=== PATIENT | male | born 1960 | race Caucasian/White ===

== ENCOUNTER → 2017-01-29 | Outpatient (REF) | payer OTHER ==
[~2017-01-29] MED LIST: AMLO5TAB2 PO; ASPI32ECTA PO; ATOR40TA PO; BACT800T5 PO; CLOP75TA2 PO; FLUT1SPR2; FOLI1TAB2 PO; GABA600T PO; LABE10TAB PO; LISI20TA3 PO; VITA100T92 PO
== END ==
LOC: M LAB REF 16:24
PROVIDERS: ATTEND Neurological Surgery
DX: Z01.818 Encounter for other preprocedural examination (principal)

== ENCOUNTER → 2017-01-29 | Outpatient (CLI) | payer BC, OTHER ==
[2017-01-29 14:41] LABS: BASO # 0.1 K/mm3 (0.0-0.2); BASO % 0.5 % (0.0-1.0); EOS # 0.3 K/mm3 (0.0-0.50); EOS % 2.8 % (0.0-3.0); INR 0.92; LARGE UNSTAINED CELL # 0.2 K/mm3 (0.0-0.4); LARGE UNSTAINED CELL % 1.4 % (0.0-4.0); LYMPH # 2.4 K/mm3 (1.5-4.5); LYMPH % 21.5 % (24.0-44.0); MEAN CORPUSCULAR HEMOGLOBIN 36.5 pg (27.0-33.0); MEAN CORPUSCULAR HGB CONC 34.1 g/dl (32.0-36.5); MONO # 0.6 K/mm3 (0.0-0.8); MONO % 5.6 % (0.0-5.0); NEUTROPHILS # 7.6 K/mm3 (1.8-7.7); NEUTROPHILS % 68.2 % (36.0-66.0); PLATELET COUNT, AUTOMATED 301 k/mm3 (150-450); RED CELL DISTRIBUTION WIDTH 11.7 % (11.5-14.5); WHITE BLOOD COUNT 11.1 K/mm3 (4.0-10.0)
--- NOTE | 2017-01-29 14:43 | ECGEPIP ---
Stationary ECG Study [facility] Test Date: 2017-01-29 Pat Name: DANYELL TURPIN Department: Room: - Gender: [employer]: CIPRIANO : 1960 Requested By: ALFIE Michele Order Number: [id number] Reading MD: Meredith Jackson Measurements Intervals [place] Rate: 78 P: 39 NC: 202 QRS: -1 QRSD: 109 T: 30 QT: 359 QTc: 409 Interpretive Statements SINUS RHYTHM FIRST DEGREE BLOCK NO PRIOR Electronically Signed On 01-29-2017 14:43:02 EDT by Meredith Jackson
--- NOTE | 2017-01-29 14:53 | REP ---
Clinical: Preoperative assessment . Comparison: 12/20/2013 . Technique: PA and lateral. Findings: The mediastinum and cardiac silhouette are normal. The lung hinkle demonstrate chronic stable changes without acute consolidation, effusion, or pneumothorax. The skeletal structures are intact and normal. Impression: 1. No acute cardiopulmonary process. Signed by Cuco Hansen MD 01/29/2017 02:45 P
[2017-01-29 14:54] LABS: ALBUMIN 3.8 GM/DL (3.2-5.2); ALBUMIN/GLOBULIN RATIO 1.23 (1.00-1.93); BILIRUBIN,TOTAL 0.3 MG/DL (0.2-1.0); CREATININE FOR GFR 2.28 MG/DL (0.70-1.30); GLOMERULAR FILTRATION RATE 31.7 (>56); POTASSIUM SERUM 4.8 MEQ/L (3.5-5.1); TOTAL PROTEIN 6.9 GM/DL (6.4-8.2)
[2017-01-29 15:26] LABS: COLLAGEN ADP 73 SECONDS (56-103)
== END ==
LOC: M LAB 13:40
PROVIDERS: ATTEND Neurological Surgery
DX: Z01.818 Encounter for other preprocedural examination (principal)

== ENCOUNTER → 2017-01-30 | Outpatient (CLI) | payer OTHER, BC ==
--- NOTE | 2017-01-30 11:29 | PFTRPT ---
Tech: Penny SPARROW RRT Age: 56 Sex: Male Race: Height: 72.00 Inches Weight: 195.00 Lbs BSA: 2.11 Diagnosis: J44.9 PULMONARY FUNCTION REPORT ORDERING PROVIDER: Eloy Singh M.D. DATE OF SERVICE: 01/30/17 SPIROMETRY:The study was of excellent technical quality. Some difficulty with effort. The forced vital capacity is normal. The FEV1 is in proportion. The obstructive index is, therefore, normal. FLOW VOLUME LOOP: The expiratory limb of the flow volume loop is normal. LUNG VOLUMES: The total lung capacity is normal. The residual volume is borderline for air trapping. DIFFUSION CAPACITY: The diffusion capacity is borderline normal, but completely corrects for alveolar volume. HEMOGLOBIN: No hemoglobin is available for correction. AIRWAY MECHANICS: Airways resistance and conductance are only minimally abnormal. IMPRESSION: Cannot rule out a mild degree of air trapping; otherwise, normal study. MTDD
== END ==
LOC: M CARPUL 10:51
PROVIDERS: ATTEND Neurological Surgery
DX: J44.9 Chronic obstructive pulmonary disease, unspecified (principal)

== ENCOUNTER → 2017-02-06 | Day surgery (SDC) | payer BC, OTHER ==
[~2017-02-06] VITALS: Ht 182.9 cm; Wt 88.5 kg
[~2017-02-06] MED LIST changes: +LIDOCAINE 1% SDV INJ 30 ML VIAL As Ordered ONE; +LIDOCAINE 2% INJ 100 MG/5 ML SDV (FOR ANES.) As Ordered ONE; +LR 1,000 ML IV ONE; +LR 1,000 ML IV SCH; +MIDAZOLAM INJ 2 MG/2 ML VIAL (J2250) As Ordered ONE; +NORCO, ANEXSIA 5/325MG TABLET (HYDROcodone/ACETAMINOPHEN) As Ordered ONE; +NORCO, ANEXSIA 5/325MG TABLET (HYDROcodone/ACETAMINOPHEN) PO PRN; +ONDANSETRON 4MG/2ML VIAL (J2405) As Ordered ONE; +ONDANSETRON 4MG/2ML VIAL (J2405) IV PRN; +PHENYLephrine HCL 500 MCG/5 ML (100MCG/ML) SYRINGE (J2370) As Ordered ONE; +PROPOFOL 200 MG/20 ML VIAL As Ordered ONE; +ePHEDrine SULFATE 25 MG/5 ML(5MG/ML) SYRINGE As Ordered ONE; +fentaNYL 100 MCG/2 ML INJECTION (J3010) As Ordered ONE; +fentaNYL 100 MCG/2 ML INJECTION (J3010) IV PRN; +methylPREDNISolone SUSP 40 MG/ML (DEPO-medrol) VIAL (J1030) As Ordered ONE
[2017-02-06 15:45] VITALS: BP 115/56
--- NOTE | 2017-02-07 08:39 | RO ---
DATE OF PROCEDURE: 02/06/2017 PREPROCEDURE DIAGNOSIS: Left carpal tunnel syndrome. POSTPROCEDURE DIAGNOSIS: Left carpal tunnel syndrome. PROCEDURE: Release of left carpal tunnel and external neurolysis of median nerve of left carpal tunnel. SURGEON: Dr. Eloy Singh. WARP HAND: None. ANESTHESIA: General. ESTIMATED BLOOD LOSS: Findings: Please see my office notes for detailed preoperative evaluation and discussions. Patient has clinical and electrodiagnostic evidence of left carpal tunnel syndrome along with the above findings. Patient was seen with his sister in the preoperative area. Patient and his sister are aware that not all of his symptoms can be readily explained on carpal tunnel syndrome, thus not all may be addressed. He understands all options, scope, expected outcome, sequel and all complications of carpal tunnel syndrome surgery and understands the risks of surgery include persistence or worsening of symptoms and/or deficits, failure of surgery, need for multiple surgeries, loss of vital bodily functions, RSD, infection, bleeding and/or any catastrophic sequel. Patient again states that he cannot live with these symptoms and is willing to take any or all risks for any possible benefit. At his request and after all matters pertaining to surgery and followup care had been discussed with him, he wished to proceed with surgery. Once in the operating room, general anesthesia was given by the anesthesia service as patient and anesthesiologist mutually decided not to have surgery done under nerve block and MAC. After adequate prep and drape, the left upper extremity was exsanguinated using Esmarch dressing. A skin incision was given along the palmar creases distal to the wrist crease. Alveolar layer was reached and incised. Cut edges of the blood vessels were coagulated with bipolar cautery. Tendons of palmaris longus were opened. Thenar and hypothenar muscles were stripped off the flexor retinaculum which was then incised in its entirety. There was nodular hypertrophy of the flexor retinaculum at the junction of the wrist as well as distally and at these sites, there was increased perineural scarring and compression of the median nerve. Superficial nerve regions were lysed and complete decompression of the median nerve appeared to have taken place. At this time, the wound was closed in two layers. Patient tolerated the procedure well and was transferred to the recovery room in stable condition. Operative findings were discussed with the patient's sister in the waiting room.
== END | disposition home or self-care (01) ==
LOC: M SDC 09:25
PROVIDERS: ATTEND Neurological Surgery
DX: G56.02 Carpal tunnel syndrome, left upper limb (principal); E78.00 Pure hypercholesterolemia, unspecified; I11.9 Hypertensive heart disease without heart failure; I25.119 Atherosclerotic heart disease of native coronary artery with unspecified angina pectoris; J44.9 Chronic obstructive pulmonary disease, unspecified; H92.09 Otalgia, unspecified ear; H90.5 Unspecified sensorineural hearing loss; I25.2 Old myocardial infarction; G47.00 Insomnia, unspecified; I49.9 Cardiac arrhythmia, unspecified; R06.02 Shortness of breath; R06.2 Wheezing; K64.9 Unspecified hemorrhoids; K21.9 Gastro-esophageal reflux disease without esophagitis; G56.20 Lesion of ulnar nerve, unspecified upper limb; G60.3 Idiopathic progressive neuropathy; M47.16 Other spondylosis with myelopathy, lumbar region; M47.12 Other spondylosis with myelopathy, cervical region; R25.1 Tremor, unspecified; H81.93 Unspecified disorder of vestibular function, bilateral; M46.1 Sacroiliitis, not elsewhere classified; F17.210 Nicotine dependence, cigarettes, uncomplicated; R29.898 Other symptoms and signs involving the musculoskeletal system; G47.30 Sleep apnea, unspecified; Z79.899 Other long term (current) drug therapy; Z79.82 Long term (current) use of aspirin; Z86.73 Personal history of transient ischemic attack (TIA), and cerebral infarction without residual deficits; Z95.5 Presence of coronary angioplasty implant and graft
CPT/HCPCS: 36415; 64721; 81001; 85576; J0690; J1030; J2250; J2370; J2405; J3010

== ENCOUNTER → 2017-03-11 | Outpatient (REF) | payer OTHER ==
[~2017-03-11] MED LIST changes: -LIDOCAINE 1% SDV INJ 30 ML VIAL As Ordered ONE; -LIDOCAINE 2% INJ 100 MG/5 ML SDV (FOR ANES.) As Ordered ONE; -LR 1,000 ML IV ONE; -LR 1,000 ML IV SCH; -MIDAZOLAM INJ 2 MG/2 ML VIAL (J2250) As Ordered ONE; -NORCO, ANEXSIA 5/325MG TABLET (HYDROcodone/ACETAMINOPHEN) As Ordered ONE; -NORCO, ANEXSIA 5/325MG TABLET (HYDROcodone/ACETAMINOPHEN) PO PRN; -ONDANSETRON 4MG/2ML VIAL (J2405) As Ordered ONE; -ONDANSETRON 4MG/2ML VIAL (J2405) IV PRN; -PHENYLephrine HCL 500 MCG/5 ML (100MCG/ML) SYRINGE (J2370) As Ordered ONE; -PROPOFOL 200 MG/20 ML VIAL As Ordered ONE; -ePHEDrine SULFATE 25 MG/5 ML(5MG/ML) SYRINGE As Ordered ONE; -fentaNYL 100 MCG/2 ML INJECTION (J3010) As Ordered ONE; -fentaNYL 100 MCG/2 ML INJECTION (J3010) IV PRN; -methylPREDNISolone SUSP 40 MG/ML (DEPO-medrol) VIAL (J1030) As Ordered ONE
[2017-03-11 19:59] LABS: FOLATE > 24.0 NG/ML; VITAMIN B12 LEVEL 295 PG/ML
[2017-03-14 00:07] LABS: Lyme Disease IgG/IgM Antibodie <0.91 ISR (0.00-0.90); Lyme Disease IgM Ab Quantitati <0.80 index (0.00-0.79)
== END ==
LOC: M LAB REF 17:29
PROVIDERS: ATTEND Physician Assistant Medical
DX: R53.83 Other fatigue (principal)

== ENCOUNTER → 2018-05-11 | Outpatient (CLI) | payer OTHER | LOC: M WUC 14:01 | DX: M51.36 Other intervertebral disc degeneration, lumbar region (principal); S30.0XXA Contusion of lower back and pelvis, initial encounter; Y92.89 Other specified places as the place of occurrence of the external cause; Y93.89 Activity, other specified; Y99.8 Other external cause status; X58.XXXA Exposure to other specified factors, initial encounter | CPT/HCPCS: 72110 ==

== ENCOUNTER 2021-10-31 16:31 | Inpatient (IN) | payer BC ==
[~2021-10-31] VITALS: Ht 182.9 cm; Wt 93.8 kg
[~2021-10-31 16:31] MED LIST changes: +AMLO1TAB24 PO; -AMLO5TAB2 PO; +ASPI-255 PO; -ASPI32ECTA PO; -ATOR40TA PO; +ATOR40TA75 PO; +FOLI1TAB11 PO; -FOLI1TAB2 PO; -GABA600T PO; +GABA600T4 PO; +LABE100T4 PO; -LABE10TAB PO; -LISI20TA3 PO; +LISI20TA37 PO; +VITA100T89 PO; -VITA100T92 PO
[2021-10-31] MEDS ORDERED: FUROSEMIDE 40MG/4ML VIAL (J1940) IV ONE (17:25)
[2021-10-31 17:53] LABS: BASO # 0.1 10^3/uL (0.0-0.2); BASO % 0.9 % (0.0-1.0); EOS # 0.1 10^3/uL (0.0-0.5); EOS % 0.6 % (0.0-3.0); HEMATOCRIT 43.6 % (42.0-52.0); HEMOGLOBIN 14.2 g/dl (13.5-17.5); LYMPH # 1.3 10^3/uL (1.5-5.0); LYMPH % 15.1 % (24.0-44.0); MEAN CORPUSCULAR HEMOGLOBIN 36.8 pg (27.0-33.0); MEAN CORPUSCULAR HGB CONC 32.6 g/dl (32.0-36.5); MONO # 0.7 10^3/uL (0.0-0.8); MONO % 8.1 % (2.0-8.0); NEUTROPHILS # 6.5 10^3/uL (1.5-8.5); PLATELET COUNT, AUTOMATED 187 10^3/uL (150-450); RED BLOOD COUNT 3.86 10^6/uL (4.30-6.10); WHITE BLOOD COUNT 8.7 10^3/uL (4.0-10.0)
[2021-10-31 18:14] LABS: INR 1.13; PROTHROMBIN TIME 14.9 SECONDS (12.7-14.5)
[2021-10-31 18:15] LABS: ALBUMIN 3.2 GM/DL (3.2-5.2); ALT/SGPT 28 U/L (12-78); BILIRUBIN,DIRECT 1.1 MG/DL (0.0-0.2); BILIRUBIN,TOTAL 2.2 MG/DL (0.2-1.0); BLOOD UREA NITROGEN 12 MG/DL (7-18); CALCIUM LEVEL 9.2 MG/DL (8.8-10.2); CARBON DIOXIDE LEVEL 30 MEQ/L (21-32); CHLORIDE LEVEL 97 MEQ/L (98-107); CREATININE FOR GFR 1.22 MG/DL (0.70-1.30); ETHYL ALCOHOL (ETHANOL) 0.008 % (0.000-0.010); GLOMERULAR FILTRATION RATE > 60.0 (>49); GLUCOSE, FASTING 95 MG/DL (70-100); MAGNESIUM LEVEL 1.5 MG/DL (1.8-2.4); NT-PRO BNP 13859 PG/ML (<125); POTASSIUM SERUM 4.7 MEQ/L (3.5-5.1); SODIUM LEVEL 136 MEQ/L (136-145); TOTAL PROTEIN 6.5 GM/DL (6.4-8.2)
[2021-10-31] MEDS ORDERED: OXAZEPAM 15 MG CAP PO ONE (18:25)
[2021-10-31] MEDS ORDERED: MAG SULF 1GM/100ML (MAG RUN) 1 GM in IV 1 EA IV ONE (18:30)
[2021-10-31] MEDS ORDERED: niCARdipine IV 40 MG in IV 1 EA IV SCH (18:35)
[2021-10-31] MEDS ORDERED: methylPREDNISolone 125MG 2ML VIAL IV STA (19:01)
[2021-10-31] MEDS ORDERED: HOME MED LIST COMPLETE! XX SCH (19:05)
[2021-10-31] MEDS ORDERED: ACETAMINOPHEN TAB 650MG DOSE (2X325MG) PO PRN (19:05)
[2021-10-31] MEDS ORDERED: guaiFENesin DM LIQ 10ML UD PO PRN (19:05)
[2021-10-31] MEDS ORDERED: LORazepam 2 MG TAB PO PRN (19:05)
[2021-10-31] MEDS ORDERED: MOM 30ML SUSPENSION UDC PO PRN (19:05)
[2021-10-31] MEDS ORDERED: MAALOX 30 ML SUSP *UDC PO PRN (19:05)
[2021-10-31] MEDS ORDERED: LEVALBUTEROL 1.25 MG/0.5 ML CONCENTRATE NEB NEB PRN (19:10)
[2021-10-31] MEDS: IPRATROPIUM 0.5MG/ALBUTEROL 2.5MG INH SOL UD 3ML (DUONEB) NEB SCH (20:04)
[2021-10-31] MEDS ORDERED: hydrALAZINE 20MG/ML 1ML VIAL (J0360 PER 20MG) IV PRN (20:10)
[2021-10-31 20:11] LABS: FOLATE 5.8 NG/ML (>5.4)
[2021-10-31] MEDS ORDERED: SPIRONOLACTONE 25 MG TAB PO ONE (21:00)
[2021-10-31] MEDS ORDERED: cefTRIAXone SOD 1 GM in D5W MINI-BAG PLUS 50 ML IV ONE (21:05)
[2021-10-31 21:30] VITALS: BP 151/79
[2021-10-31] MEDS: THIAMINE 100 MG TAB PO SCH (21:56)
[2021-10-31] MEDS: DOCUSATE SODIUM 100MG CAPSULE PO SCH (21:56)
[2021-10-31 23:50] VITALS: BP 160/88
[2021-11-01] VITALS (12 sets, daily range): BP systolic 104–145; BP diastolic 53–71; O2SAT 89–95
[2021-11-01] MEDS: OXAZEPAM 10 MG CAP PO SCH ×4 (00:25→17:56)
[2021-11-01] MEDS ORDERED: ACETAMINOPHEN TAB 650MG DOSE (2X325MG) PO PRN (01:40)
[2021-11-01] MEDS ORDERED: FUROSEMIDE 40MG/4ML VIAL (J1940) IV SCH ×2 (02:00→08:00)
[2021-11-01] MEDS: IPRATROPIUM 0.5MG/ALBUTEROL 2.5MG INH SOL UD 3ML (DUONEB) NEB SCH ×4 (02:00→19:54)
[2021-11-01] MEDS: methylPREDNISolone 125MG 2ML VIAL IV SCH ×3 (04:04→20:15)
[2021-11-01 05:50] LABS: APPEARANCE, URINE CLEAR (CLEAR); BACTERIA, URINE AUTO NEGATIVE (NEGATIVE); BILIRUBIN, URINE AUTO NEGATIVE (NEGATIVE); BLOOD, URINE BLOOD NEGATIVE (NEGATIVE); GLUCOSE, URINE (UA) AUTO NEGATIVE (NEGATIVE); KETONE, URINE AUTO NEGATIVE (NEGATIVE); LEUKOCYTE ESTERASE, URINE AUTO NEGATIVE (NEGATIVE); NITRITE, URINE AUTO NEGATIVE (NEGATIVE); PROTEIN, URINE AUTO 1+ mg/dL (NEGATIVE); RBC, URINE AUTO 1 /HPF (0-3); SPECIFIC GRAVITY URINE AUTO 1.004 (1.002-1.035); SQUAMOUS EPITHELIAL CELL UR AU 0 /HPF (0-6); UROBILINOGEN, URINE AUTO 0.2 mg/dL (0.0-2.0); WBC, URINE AUTO 0 /HPF (0-3)
[2021-11-01] MEDS ORDERED: ISOSORBIDE DIN. (ISORDIL) 20 MG TAB PO SCH ×2 (06:00→12:00)
[2021-11-01 06:04] LABS: HEMATOCRIT 43.5 % (42.0-52.0); HEMOGLOBIN 14.4 g/dl (13.5-17.5); MEAN CORPUSCULAR HEMOGLOBIN 36.8 pg (27.0-33.0); MEAN CORPUSCULAR HGB CONC 33.1 g/dl (32.0-36.5); MEAN CORPUSCULAR VOLUME 111.3 fl (80.0-96.0); PLATELET COUNT, AUTOMATED 190 10^3/uL (150-450); RED BLOOD COUNT 3.91 10^6/uL (4.30-6.10); WHITE BLOOD COUNT 4.7 10^3/uL (4.0-10.0)
[2021-11-01 06:28] LABS: ALBUMIN 2.8 GM/DL (3.2-5.2); ALT/SGPT 25 U/L (12-78); BILIRUBIN,TOTAL 2.6 MG/DL (0.2-1.0); BLOOD UREA NITROGEN 13 MG/DL (7-18); CARBON DIOXIDE LEVEL 32 MEQ/L (21-32); CHLORIDE LEVEL 95 MEQ/L (98-107); CREATININE FOR GFR 1.09 MG/DL (0.70-1.30); GLOMERULAR FILTRATION RATE > 60.0 (>49); GLUCOSE, FASTING 147 MG/DL (70-100); MAGNESIUM LEVEL 1.4 MG/DL (1.8-2.4); POTASSIUM SERUM 4.1 MEQ/L (3.5-5.1); SODIUM LEVEL 136 MEQ/L (136-145); TOTAL PROTEIN 6.3 GM/DL (6.4-8.2)
[2021-11-01] MEDS ORDERED: metOLazone 5 MG TAB PO ONE (08:00)
[2021-11-01] MEDS ORDERED: MAG SULF 1GM/100ML (MAG RUN) 1 GM in IV 1 EA IV ONE (08:00)
[2021-11-01 08:15] LABS: COLOR, URINE YELLOW (YELLOW)
[2021-11-01] MEDS: **hydrALAZINE HCL** 25 MG TAB PO SCH ×3 (08:36→17:56)
[2021-11-01] MEDS: DOCUSATE SODIUM 100MG CAPSULE PO SCH ×2 (09:00→20:16)
[2021-11-01] MEDS: MULTIVITAMINS/MINERALS THERAP 1 TAB PO SCH (09:18)
[2021-11-01] MEDS: PANTOPRAZOLE 40MG TAB (PROTONIX) PO SCH (09:18)
[2021-11-01] MEDS: MAGNESIUM OXIDE 400MG TAB (MAG-OX) PO SCH ×2 (09:18→20:17)
[2021-11-01] MEDS: THIAMINE 100 MG TAB PO SCH ×2 (09:18→20:16)
[2021-11-01] MEDS: FUROSEMIDE 40MG/4ML VIAL (J1940) IV SCH ×3 (09:19→20:16)
[2021-11-01] MEDS: FOLIC ACID 1 MG TAB PO SCH (09:19)
[2021-11-01] MEDS: ENOXAPARIN 40MG/0.4ML SYRINGE (J1650 PER 10MG) SC SCH (09:19)
[2021-11-01] MEDS: SPIRONOLACTONE 25 MG TAB PO SCH (09:25)
[2021-11-01] MEDS ORDERED: LOPERAMIDE 2 MG CAPLET PO PRN (15:10)
[2021-11-01 16:11] LABS: CREATININE FOR GFR 1.52 MG/DL (0.70-1.30); GLOMERULAR FILTRATION RATE 49.7 (>49); MAGNESIUM LEVEL 1.5 MG/DL (1.8-2.4); POTASSIUM SERUM 3.6 MEQ/L (3.5-5.1)
[2021-11-01 16:16] LABS: CK-MB VALUE MASS 3.3 NG/ML (<3.6); MB/CK RELATIVE INDEX 3.98 (< OR =4)
[2021-11-01] MEDS: NYSTATIN 100,000 UNITS/GM TOPICAL PWD 15 GM TOP SCH (20:15)
[2021-11-02] MEDS: **hydrALAZINE HCL** 25 MG TAB PO SCH ×2 (00:46→06:04)
[2021-11-02] MEDS: OXAZEPAM 10 MG CAP PO SCH ×4 (00:46→18:26)
[2021-11-02 00:56] VITALS: BP 133/69
[2021-11-02] MEDS: IPRATROPIUM 0.5MG/ALBUTEROL 2.5MG INH SOL UD 3ML (DUONEB) NEB SCH ×4 (02:00→21:37)
[2021-11-02] MEDS: FUROSEMIDE 40MG/4ML VIAL (J1940) IV SCH (03:19)
[2021-11-02] MEDS: methylPREDNISolone 125MG 2ML VIAL IV SCH ×2 (03:19→11:35)
[2021-11-02 06:00] VITALS: BP 128/66
[2021-11-02 06:48] LABS: HEMATOCRIT 38.5 % (42.0-52.0); MEAN CORPUSCULAR HGB CONC 33.8 g/dl (32.0-36.5); MEAN CORPUSCULAR VOLUME 109.7 fl (80.0-96.0); PLATELET COUNT, AUTOMATED 185 10^3/uL (150-450); RED BLOOD COUNT 3.51 10^6/uL (4.30-6.10); WHITE BLOOD COUNT 13.1 10^3/uL (4.0-10.0)
[2021-11-02 07:17] LABS: ALBUMIN 2.9 GM/DL (3.2-5.2); CALCIUM LEVEL 9.3 MG/DL (8.8-10.2); CREATININE FOR GFR 1.45 MG/DL (0.70-1.30); GLOMERULAR FILTRATION RATE 52.5 (>49); MAGNESIUM LEVEL 1.6 MG/DL (1.8-2.4); POTASSIUM SERUM 3.6 MEQ/L (3.5-5.1); TOTAL PROTEIN 6.1 GM/DL (6.4-8.2)
[2021-11-02] MEDS ORDERED: MAG SULF 1GM/100ML (MAG RUN) 1 GM in IV 1 EA IV ONE (08:20)
[2021-11-02] MEDS: FOLIC ACID 1 MG TAB PO SCH (09:12)
[2021-11-02] MEDS: DOCUSATE SODIUM 100MG CAPSULE PO SCH ×2 (09:12→21:19)
[2021-11-02] MEDS: ENOXAPARIN 40MG/0.4ML SYRINGE (J1650 PER 10MG) SC SCH (09:12)
[2021-11-02] MEDS: THIAMINE 100 MG TAB PO SCH ×2 (09:12→21:19)
[2021-11-02] MEDS: MULTIVITAMINS/MINERALS THERAP 1 TAB PO SCH (09:12)
[2021-11-02] MEDS: SPIRONOLACTONE 25 MG TAB PO SCH (09:13)
[2021-11-02] MEDS: MAGNESIUM OXIDE 400MG TAB (MAG-OX) PO SCH ×2 (09:13→21:20)
[2021-11-02] MEDS: PANTOPRAZOLE 40MG TAB (PROTONIX) PO SCH (09:13)
[2021-11-02] MEDS: NYSTATIN 100,000 UNITS/GM TOPICAL PWD 15 GM TOP SCH ×2 (09:13→21:20)
[2021-11-02] MEDS ORDERED: FUROSEMIDE 40MG/4ML VIAL (J1940) IV SCH (10:00)
[2021-11-02 12:46] VITALS: O2SAT 88
[2021-11-02] MEDS ORDERED: NITROGLYCERIN 0.4 MG SUBL TABLET SL STA (13:11)
[2021-11-02] MEDS ORDERED: NITROGLYCERIN 0.4 MG SUBL TABLET SL PRN (13:15)
[2021-11-02] MEDS ORDERED: SUCRALFATE SUSP 1GM/10ML UD PO ONE (13:30)
[2021-11-02] MEDS ORDERED: GI COCKTAIL 50ML BTL(HYOSCYAMINE/MAALOX/LIDOCAINE VISCOUS)(1:3:1) PO ONE (14:00)
[2021-11-02 16:30] VITALS: BP 157/73
[2021-11-02 16:30] LABS: CK-MB VALUE MASS 10.1 NG/ML (<3.6); MB/CK RELATIVE INDEX 7.77 (< OR =4)
[2021-11-02] MEDS ORDERED: APIXABAN 5 MG TAB (ELIQUIS) PO ONE (16:30)
[2021-11-02] MEDS ORDERED: CLOPIDOGREL 75 MG TAB PO STA (16:36)
[2021-11-02] MEDS ORDERED: ASPIRIN 325 MG TAB PO ONE (16:40)
[2021-11-02] MEDS ORDERED: ATORVASTATIN 20 MG TAB PO ONE (16:40)
[2021-11-02] MEDS: SUCRALFATE SUSP 1GM/10ML UD PO SCH ×2 (16:46→21:19)
[2021-11-02] MEDS ORDERED: HEPARIN SOD (PORCINE) 5000UNITS/ML 1ML VIAL/SYRINGE IV PRN (17:15)
[2021-11-02] MEDS ORDERED: HEPARIN SOD (PORCINE) 5000UNITS/ML 1ML VIAL/SYRINGE IV ONE (17:15)
[2021-11-02] MEDS ORDERED: MORPHINE 2 MG/ML 1ML VIAL (J2270) IV PRN (17:20)
[2021-11-02] MEDS ORDERED: THIA100TA PO (17:28)
[2021-11-02] MEDS ORDERED: MAGN400T2 PO (17:28)
[2021-11-02] MEDS ORDERED: ASPI-1 PO (17:28)
[2021-11-02] MEDS ORDERED: METO1TAB87 PO (17:28)
[2021-11-02] MEDS ORDERED: FOLI1TAB11 PO (17:28)
[2021-11-02] MEDS ORDERED: ATOR1TAB21 PO (17:28)
[2021-11-02 17:39] VITALS: BP 153/72
[2021-11-02 17:58] LABS: HEMATOCRIT 42.2 % (42.0-52.0); HEMOGLOBIN 14.4 g/dl (13.5-17.5); MEAN CORPUSCULAR HEMOGLOBIN 37.7 pg (27.0-33.0); MEAN CORPUSCULAR HGB CONC 34.1 g/dl (32.0-36.5); MEAN CORPUSCULAR VOLUME 110.5 fl (80.0-96.0); PLATELET COUNT, AUTOMATED 188 10^3/uL (150-450); RED BLOOD COUNT 3.82 10^6/uL (4.30-6.10); WHITE BLOOD COUNT 16.1 10^3/uL (4.0-10.0)
[2021-11-02] MEDS ORDERED: HEPARIN DRIP 25,000 UNITS in IV 1 EA IV SCH (18:00)
[2021-11-02] MEDS ORDERED: GI COCKTAIL 50ML BTL(HYOSCYAMINE/MAALOX/LIDOCAINE VISCOUS)(1:3:1) PO PRN (18:00)
[2021-11-02] MEDS: METOPROLOL TART 12.5 MG PER 1/2 TAB PO SCH (18:26)
[2021-11-02 20:00] VITALS: BP 132/62
[2021-11-02 21:49] LABS: CK-MB VALUE MASS 13.1 NG/ML (<3.6); MB/CK RELATIVE INDEX 7.84 (< OR =4)
[2021-11-03] VITALS: BP 128/63
[2021-11-03] MEDS: OXAZEPAM 10 MG CAP PO SCH ×2 (00:02→05:02)
[2021-11-03 01:04] LABS: INR 1.38; PROTHROMBIN TIME 17.4 SECONDS (12.7-14.5)
[2021-11-03 01:06] LABS: PARTIAL THROMBOPLASTIN TIME 64.4 SECONDS (25.9-37.0)
[2021-11-03] MEDS: IPRATROPIUM 0.5MG/ALBUTEROL 2.5MG INH SOL UD 3ML (DUONEB) NEB SCH ×2 (01:53→08:18)
[2021-11-03 03:20] LABS: HEMATOCRIT 38.9 % (42.0-52.0); MEAN CORPUSCULAR HEMOGLOBIN 37.4 pg (27.0-33.0); MEAN CORPUSCULAR HGB CONC 33.4 g/dl (32.0-36.5); MEAN CORPUSCULAR VOLUME 111.8 fl (80.0-96.0); PLATELET COUNT, AUTOMATED 179 10^3/uL (150-450); RED BLOOD COUNT 3.48 10^6/uL (4.30-6.10); WHITE BLOOD COUNT 13.2 10^3/uL (4.0-10.0)
[2021-11-03 04:00] VITALS: BP 156/78
[2021-11-03 04:16] LABS: CK-MB VALUE MASS 7.2 NG/ML (<3.6); MB/CK RELATIVE INDEX 6.05 (< OR =4)
[2021-11-03 04:46] LABS: ALBUMIN 3.1 GM/DL (3.2-5.2); BILIRUBIN,TOTAL 2.2 MG/DL (0.2-1.0); CALCIUM LEVEL 9.5 MG/DL (8.8-10.2); CREATININE FOR GFR 1.52 MG/DL (0.70-1.30); GLOMERULAR FILTRATION RATE 49.7 (>49); MAGNESIUM LEVEL 1.8 MG/DL (1.8-2.4); POTASSIUM SERUM 3.5 MEQ/L (3.5-5.1); TOTAL PROTEIN 6.2 GM/DL (6.4-8.2)
[2021-11-03 05:02] VITALS: BP 156/78
[2021-11-03] MEDS: METOPROLOL TART 12.5 MG PER 1/2 TAB PO SCH ×2 (05:02)
[2021-11-03] MEDS ORDERED: OXAZ10CA3 PO (07:36)
[2021-11-03] MEDS ORDERED: VITMTA PO (07:36)
[2021-11-03] MEDS ORDERED: PANT40TA29 PO (07:36)
[2021-11-03] MEDS ORDERED: NICO14DI6 TOP (07:37)
[2021-11-03 08:00] VITALS: BP 158/78
[2021-11-03] MEDS: SUCRALFATE SUSP 1GM/10ML UD PO SCH (08:22)
[2021-11-03] MEDS: PANTOPRAZOLE 40MG TAB (PROTONIX) PO SCH (08:23)
[2021-11-03] MEDS: FOLIC ACID 1 MG TAB PO SCH (08:23)
[2021-11-03] MEDS: NYSTATIN 100,000 UNITS/GM TOPICAL PWD 15 GM TOP SCH (08:23)
[2021-11-03] MEDS: MAGNESIUM OXIDE 400MG TAB (MAG-OX) PO SCH (08:23)
[2021-11-03] MEDS: DOCUSATE SODIUM 100MG CAPSULE PO SCH (08:23)
[2021-11-03] MEDS: THIAMINE 100 MG TAB PO SCH (08:23)
[2021-11-03] MEDS: MULTIVITAMINS/MINERALS THERAP 1 TAB PO SCH (08:23)
[2021-11-03] MEDS ORDERED: ASPIRIN 325 MG TAB PO SCH (09:00)
[2021-11-03] MEDS ORDERED: APIXABAN 5 MG TAB (ELIQUIS) PO SCH (09:00)
[2021-11-03] MEDS ORDERED: ATORVASTATIN 20 MG TAB PO SCH (09:00)
[2021-11-03 09:37] LABS: CK-MB VALUE MASS 4.8 NG/ML (<3.6); MB/CK RELATIVE INDEX 5.27 (< OR =4)
== END 2021-11-03 08:45 | disposition short-term general hospital (02) | DRG 140 ==
LOC: M ED 16:31 → M ED INP 19:01 → M PCU 21:28 → M MSPAV 11-01 15:13 → M PCU 11-02 17:31
PROVIDERS: ADMIT Internal Medicine; ATTEND General Practice
DX: J44.1 Chronic obstructive pulmonary disease with (acute) exacerbation (principal); I21.4 Non-ST elevation (NSTEMI) myocardial infarction; I50.33 Acute on chronic diastolic (congestive) heart failure; N17.9 Acute kidney failure, unspecified; E87.1 Hypo-osmolality and hyponatremia; E83.42 Hypomagnesemia; K70.30 Alcoholic cirrhosis of liver without ascites; Z95.2 Presence of prosthetic heart valve; I16.0 Hypertensive urgency; F17.210 Nicotine dependence, cigarettes, uncomplicated; F10.10 Alcohol abuse, uncomplicated; D72.829 Elevated white blood cell count, unspecified; I25.10 Atherosclerotic heart disease of native coronary artery without angina pectoris; Z79.899 Other long term (current) drug therapy; Z79.82 Long term (current) use of aspirin; G47.33 Obstructive sleep apnea (adult) (pediatric); K21.9 Gastro-esophageal reflux disease without esophagitis; Z91.19 Patient's noncompliance with other medical treatment and regimen; Z91.14 Patient's other noncompliance with medication regimen

== ENCOUNTER → 2023-03-15 | Outpatient (CLI) | payer BC, OTHER ==
[~2023-03-15] MED LIST changes: +ASPI-1 PO; +ATOR1TAB21 PO; -LABE100T4 PO; +LABE100T6 PO; +MAGN400T2 PO; +METO1TAB87 PO; +NICO14DI6 TOP; +OXAZ10CA3 PO; +PANT40TA29 PO; +THIA100TA PO; +VITMTA PO
[2023-03-15 10:18] LABS: CREATININE FOR GFR 2.05 MG/DL (0.70-1.30); GLOMERULAR FILTRATION RATE 35.1 (>49)
== END ==
LOC: M LAB 09:22
PROVIDERS: ATTEND Nurse Practitioner Family
DX: N17.9 Acute kidney failure, unspecified (principal)

== ENCOUNTER → 2023-05-02 | Outpatient (CLI) | payer BC, OTHER | LOC: M RAD 09:17 | PROVIDERS: ATTEND Nurse Practitioner Family | DX: N17.9 Acute kidney failure, unspecified (principal) ==

== ENCOUNTER → 2023-05-02 | Outpatient (REF) | payer BC, OTHER ==
[2023-05-02 19:19] LABS: APPEARANCE, URINE CLOUDY (CLEAR); BACTERIA, URINE AUTO NEGATIVE (NEGATIVE); BILIRUBIN, URINE AUTO NEGATIVE (NEGATIVE); BLOOD, URINE BLOOD NEGATIVE (NEGATIVE); COLOR, URINE YELLOW (YELLOW); GLUCOSE, URINE (UA) AUTO NEGATIVE (NEGATIVE); KETONE, URINE AUTO NEGATIVE (NEGATIVE); LEUKOCYTE ESTERASE, URINE AUTO NEGATIVE (NEGATIVE); NITRITE, URINE AUTO NEGATIVE (NEGATIVE); PROTEIN, URINE AUTO 1+ mg/dL (NEGATIVE); RBC, URINE AUTO 0 /HPF (0-3); SPECIFIC GRAVITY URINE AUTO 1.013 (1.002-1.035); SQUAMOUS EPITHELIAL CELL UR AU 1 /HPF (0-6); UROBILINOGEN, URINE AUTO 0.2 mg/dL (0.0-2.0); WBC, URINE AUTO 1 /HPF (0-3)
== END ==
LOC: M SMT 17:07
PROVIDERS: ATTEND Physician Assistant
DX: R31.0 Gross hematuria (principal)

== ENCOUNTER → 2023-05-22 | Outpatient (CLI) | payer BC, OTHER | LOC: M RAD 09:32 | PROVIDERS: ATTEND Physician Assistant | DX: R31.0 Gross hematuria (principal); K40.90 Unilateral inguinal hernia, without obstruction or gangrene, not specified as recurrent; E27.9 Disorder of adrenal gland, unspecified ==

== ENCOUNTER → 2023-09-04 | Outpatient (CLI) | payer BC, OTHER | LOC: M RAD 09:12 | PROVIDERS: ATTEND Internal Medicine Nephrology | DX: I70.1 Atherosclerosis of renal artery (principal); N20.0 Calculus of kidney; I70.0 Atherosclerosis of aorta; R16.0 Hepatomegaly, not elsewhere classified; K76.0 Fatty (change of) liver, not elsewhere classified; E27.8 Other specified disorders of adrenal gland ==

== ENCOUNTER → 2024-12-04 | Outpatient (CLI) | payer MEDICARE, BC ==
[~2024-12-04] MED LIST changes: +GABA-1490 PO; -GABA600T4 PO; +GASTROGRAFIN SOLUTION 30ML As Ordered ONE; +ISOVUE-370 76% 100ML VIAL As Ordered ONE
== END ==
LOC: M PLAIMG 11-09 15:06 → M RAD 14:28
PROVIDERS: ATTEND Internal Medicine Cardiovascular Disease
DX: R16.0 Hepatomegaly, not elsewhere classified (principal); R19.8 Other specified symptoms and signs involving the digestive system and abdomen; R59.0 Localized enlarged lymph nodes; K22.89 Other specified disease of esophagus
CPT/HCPCS: 74150; Q9963

== ENCOUNTER → 2024-12-23 | Outpatient (CLI) | payer MEDICARE, BC ==
[~2024-12-23] VITALS: Ht 182.9 cm; Wt 61.3 kg
[~2024-12-23] MED LIST changes: +DULO30CA9 PO; -GASTROGRAFIN SOLUTION 30ML As Ordered ONE; +HYDR-3713 PO; -ISOVUE-370 76% 100ML VIAL As Ordered ONE; +MIRA3350 PO; +ONDA-282 PO; +SENN8.6T28 PO
[2024-12-23 15:03] VITALS: BP 123/72; O2SAT 99
== END ==
LOC: M PAL 14:51
PROVIDERS: ATTEND Physician Assistant
DX: Z51.5 Encounter for palliative care (principal); Z66 Do not resuscitate; C78.7 Secondary malignant neoplasm of liver and intrahepatic bile duct; C78.00 Secondary malignant neoplasm of unspecified lung; Z79.891 Long term (current) use of opiate analgesic; I25.10 Atherosclerotic heart disease of native coronary artery without angina pectoris; E78.5 Hyperlipidemia, unspecified; I10 Essential (primary) hypertension

== ENCOUNTER → 2025-01-04 | Outpatient (CLI) | payer MEDICARE, BC ==
[~2025-01-04] MED LIST changes: +FAMO1TAB11
== END ==
LOC: M PLARAD 13:44
PROVIDERS: ATTEND Specialist
DX: C16.0 Malignant neoplasm of cardia (principal)
CPT/HCPCS: 78815; A9552

== ENCOUNTER → 2025-01-05 | Outpatient (CLI) | payer MEDICARE, BC ==
[~2025-01-05] MED LIST changes: +BISO10TA13 PO; +CALC1CAP31 PO; +DULO1CAP5 PO; +FAMO20TA PO; +FURO40TA2 PO; +HYDR-4571 PO; +MM S100C PO
== END ==
LOC: M ONCM 11:12
PROVIDERS: ATTEND Dietitian, Registered
DX: Z71.3 Dietary counseling and surveillance (principal); C78.7 Secondary malignant neoplasm of liver and intrahepatic bile duct; C78.00 Secondary malignant neoplasm of unspecified lung; C80.1 Malignant (primary) neoplasm, unspecified; Z68.1 Body mass index [BMI] 19.9 or less, adult

== ENCOUNTER 2025-01-06 13:00 | Day surgery (SDC) | payer MEDICARE, BC ==
[~2025-01-06] VITALS: Ht 182.9 cm; Wt 57.2 kg
[~2025-01-06 13:00] MED LIST changes: -BISO10TA13 PO; -CALC1CAP31 PO; -DULO1CAP5 PO; -FAMO20TA PO; -FURO40TA2 PO; -HYDR-4571 PO; +LIDOCAINE 2% 100MG/5ML SDV (FOR ANES.) As Ordered ONE; -MM S100C PO; +fentaNYL 100 MCG/2 ML INJECTION As Ordered ONE; +propofoL 200 MG/20 ML VIAL As Ordered ONE
[2025-01-06] MEDS: ALBUTEROL SULFATE 2.5MG/0.5ML INH CONCENTRATE NEB SOLN NEB ONE (13:43)
[2025-01-06 14:02] VITALS: TEMP 97
[2025-01-06 14:23] VITALS: BP 146/71; O2SAT 97
[2025-01-06] MEDS ORDERED: ONDANSETRON 4MG 2ML VIAL IV STA (14:38)
[2025-01-06] MEDS: ONDANSETRON 4MG TAB PO STA (14:39)
[2025-01-07] MEDS ORDERED: CALC1CAP31 PO (11:30)
[2025-01-07] MEDS ORDERED: DULO1CAP5 PO (11:30)
[2025-01-07] MEDS ORDERED: HYDR-4571 PO (11:30)
[2025-01-07] MEDS ORDERED: ONDA-282 PO (11:30)
[2025-01-07] MEDS ORDERED: FAMO20TA PO (11:30)
[2025-01-07] MEDS ORDERED: MM S100C PO (11:30)
[2025-01-07] MEDS ORDERED: FURO40TA2 PO (11:30)
[2025-01-07] MEDS ORDERED: BISO10TA13 PO (11:30)
== END 2025-01-06 15:03 | disposition home or self-care (01) ==
LOC: M OPP 13:00
PROVIDERS: ATTEND Internal Medicine Gastroenterology
DX: C16.0 Malignant neoplasm of cardia (principal); R13.10 Dysphagia, unspecified; R63.4 Abnormal weight loss; Z95.5 Presence of coronary angioplasty implant and graft; I25.10 Atherosclerotic heart disease of native coronary artery without angina pectoris; Z86.73 Personal history of transient ischemic attack (TIA), and cerebral infarction without residual deficits; G47.30 Sleep apnea, unspecified; Z79.891 Long term (current) use of opiate analgesic; Z79.899 Other long term (current) drug therapy; J44.9 Chronic obstructive pulmonary disease, unspecified
CPT/HCPCS: 43239; 88305; J3010